=== PATIENT | female | born 1975 | race Caucasian/White ===

== ENCOUNTER → 2022-10-09 | Outpatient (CLI) | payer BC ==
--- NOTE | 2022-10-09 10:50 | XR ---
EXAMINATION TYPE: XR finger LT DATE OF EXAM: 10/09/2022 COMPARISON: NONE HISTORY: Injury with pain TECHNIQUE: 3 views left fifth finger. FINDINGS: Acute comminuted minimally displaced fracture with intra-articular extension through the di stal one half of the fifth middle phalanx. On frontal view there is possible small avulsion type frac ture component along the ulnar distal aspect but this is not replicated on the oblique or lateral vie ws. Mild to moderate associated soft tissue swelling is noted. IMPRESSION: As above.
== END | disposition home or self-care (01) ==
LOC: RADXRMAIN 10:22
PROVIDERS: ATTEND Family Medicine
DX: S62.602A Fracture of unspecified phalanx of right middle finger, initial encounter for closed fracture (principal)